=== PATIENT | female | born 1975 | race Caucasian/White ===

== ENCOUNTER 2019-04-07 12:44 | Outpatient (CLI) | payer OTHER ==
[2015-01-04 03:39] VITALS: BP 139/76
--- NOTE | 2019-04-11 15:20 | CONSULTATION REPORT ---
DATE OF CONSULTATION: 04/07/2019 SUBJECTIVE: Sherly Velarde is a 43-year-old female presenting to the clinic today for a first time visit for an ingrown toenail that has repeated multiple times in her past on the left great toe lateral border. She would like a permanent procedure done if possible today. SHE ADMITS ALLERGIES TO BACTRIM and states that she is only on thyroid medications. She does not admit to any fever, chills, nausea, vomiting, shortness of breath or chest pain. She admits to pain at times in the past on the right great toe lateral border as well, but it is not bothering her now. OBJECTIVE: Vitals: Temperature 98.2 degrees Fahrenheit, heart rate 85, respiration rate 18, blood pressure 150/102. O2 saturation is 97% on room air. Vascular: 2+ DP and PT pulses, bilaterally. Capillary refill time is less than 3 seconds to the toes bilaterally. There is mild edema noted on the distal lateral aspect of the left great toe. Dermatologic: There is mild eschar and hyperkeratotic tissue noted on the distal lateral aspect of the left great toenail edge where it has obviously been quite irritated. It is obvious that some of the nail has been removed, but she is still having pain and worried that there is more nail present deep in there. There is no erythema or abnormal drainage or malodor or any warmth noted. This does not appear to be infected. There are no other skin abnormalities or concerns noted bilaterally. There is no irritation or signs of problems on the right great toe lateral border at this time. Musculoskeletal: There is pain on palpation noted on the lateral border of the left great toenail. There is no other pain on palpation elsewhere nor any gross abnormalities noted bilaterally. A 5/5 muscle strength is noted about the ankle and subtalar joint bilaterally. Neurologic: Light touch sensation is intact to the toes bilaterally. ASSESSMENT AND PLAN: 1. Onychocryptosis. PROCEDURE #1: Partial nail avulsion with chemical matrixectomy of the left great toe lateral nail border was performed. A consent was obtained after discussing the risk and benefits that include, but are not limited to bleeding and infection and the patient has agreed both by written and verbal consent to go forward with the procedure mentioned above. An alcohol swab was utilized to cleanse the base of the left great toe. 5 cc of a 1:1 mix of 2% lidocaine plain and 0.5% Marcaine plain were injected into the base of the left great toe. Once anesthesia was obtained the toe was exsanguinated and a toe tourniquet was applied at the base of the toe. At this time the toe was cleansed with Betadine prep. At this time the lateral border was avulsed with a nail splitter and hemostat after loosening it from the edges on the lateral border. Upon removal it was checked to make sure there were no other signs of nail in the area and there was not. It did feel like there was something hard in the distal lateral aspect which felt more likely as if hitting bone or tissue somewhat on the bone. This was mentioned to the patient. We will need to watch this carefully to make sure it heals well. This may have been a pretty significant ingrown toenail that penetrated deep. There is no toenail remaining in that site area. The site was rinsed with normal saline, dried and triple antibiotic ointment placed around the edges to protect the skin. Phenol was then applied in three applications consisting of 45 seconds, 30 seconds and 30 seconds. The tourniquet of the toe was removed and a prompt hyperemic response was noted to the left great toe. A copious amount of 70% isopropyl alcohol was then applied to rinse out and dilute out the phenol from the surgical site. At this time the site was rinsed with normal saline, dried and hemostasis obtained first with pressure and then dressings applied consisting of Silvadene, 4x4 gauze, 2-inch Neida and 1-inch Coban beginning on the great toe and ending on the distal forefoot to help hold it on the toe. The patient tolerated the procedure well. She was given verbal and written instructions regarding postprocedure instructions and care for the toe. We will have the patient return to clinic in one week for follow up and to make sure she is healing well and that we do not need to clear out any crusted blockage of drainage. She is to notify me if there are any concerns. We will likely see her two weeks after that again for a final visit. Elias Alexander D.P.M.(Dictated/not signed) /Accutype [id number] /mab MTDD
== END 2019-04-07 13:14 ==
LOC: POD 12:44
PROVIDERS: ATTEND Podiatrist Foot & Ankle Surgery
DX: L60.0 Ingrowing nail (principal)
CPT/HCPCS: 11730; 99202; A4554; J2001; J3490

== ENCOUNTER 2019-04-28 15:35 | Outpatient (CLI) | payer OTHER ==
[2015-01-04 03:39] VITALS: BP 139/76
--- NOTE | 2019-05-09 17:44 | OP Clinic Progress Note ---
DATE OF VISIT: 04/28/2019 SUBJECTIVE: Sherly presents to clinic today for followup a partial nail avulsion with chemical matrixectomy performed about three weeks ago on the left great toe lateral border. She presents today again for followup and is stating that she has continued to have redness and pain. She admits that some of the pain was proximal near the IPJ rather than near the toenail, but it is also near the toenail lateral proximal area. She is doing antibiotic ointment and a Band- Aid and doing Epsom salt soaks, but states that she was not washing her foot prior to putting it in Epsom salt soak bath. The patient does not admit to any other fevers, chills, nausea, vomiting, shortness of breath or chest pain. She admits to being on low dose naltrexone and levothyroxine. She does not admit to any other issues nor fevers, chills, nausea, vomiting, shortness of breath or chest pain. OBJECTIVE: Vitals: Temperature 97.1 degrees Fahrenheit, heart rate 77, respiration rate 16, blood pressure 148/77. O2 saturation is 98% on room air. Vascular: 2+ DP and PT pulses, left foot. Capillary refill time is less than 3 seconds to the toes of the left foot. There is mild edema noted on the left great toe proximal and lateral borders of the nail. Dermatologic: There is obvious slight maceration tissue in the proximal lateral edge of the toenail border where the procedure was performed as well as erythema noted and slight serosanguineous drainage from the lateral border. There is no other skin concerns or abnormalities noted in the left foot. Musculoskeletal: Pain on palpation noted at the left lateral great toe nail border as well as proximal side of the nail. There were no other gross abnormalities noted, left foot. Neurologic: Light touch sensation is intact to the toes, left foot. ASSESSMENT AND PLAN: 1. Cellulitis, left hallux. 2. Postprocedure care for partial avulsion of the left great toe lateral nail border with chemical matrixectomy. 3. Antibiotic ointment and a Band-Aid was applied today. We discussed the idea of exploring the toe today to see if there is any possibility of something being left in the edge and also starting an antibiotic versus waiting on exploring and doing just an antibiotic for a week to see if this calms down. The patient elects to go forward with an antibiotic for a week first and if needed we will consider numbing up the toe and doing a repeat procedure again to see if there is anything left and if we need to take out anymore nail. The patient is good with this plan and plans to return to clinic in one week. An antibiotic for Augmentin 875/125 mg #20 one by mouth b.i.d. times 10 days was prescribed and the patient will take that with her to get filled at the pharmacy of her choice. The patient has no further questions and we will see her in one week. Jennifer Hernandez.P.M. (Dictated/not signed) /Accutype [id number] /mab MTDD
== END 2019-04-28 16:00 ==
LOC: POD 15:35
PROVIDERS: ATTEND Podiatrist Foot & Ankle Surgery
DX: Z48.817 Encounter for surgical aftercare following surgery on the skin and subcutaneous tissue (principal); L03.116 Cellulitis of left lower limb
CPT/HCPCS: 99213; A4554